=== PATIENT | male | born 1975 | race Caucasian/White ===

== ENCOUNTER 2023-11-17 00:48 | Day surgery (SDC) | payer OTHER, SELFPAY ==
[2023-09-25 09:41] VITALS: BMI 32.5
--- NOTE | 2023-10-20 13:15 | SUR.PREOP ---
Spoke with patient and confirmed date and time of procedure that had been rescheduled. Per patient there is no new medications or updates to medical history that needed to be added to chart.
--- NOTE | 2023-11-15 09:31 | SUR.PREOP ---
Patient called regarding upcoming procedure. Voicemail message regarding appointment times.
--- NOTE | 2023-11-16 18:12 | PM.HPGS ---
History of Present Illness History of Present Illness Consent: Risks, benefits, and alternatives have been discussed and questions answered. Patient agrees to proceed with procedure. Chief complaint: neoplasm screening Narrative: Heladio Raymond is a 48 year old male Referred for colon cancer screening. 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 Father No problems noted. Social History Social History Smoking packs per day: 1 Smoking cigarettes per day: 20.0 Years smoked: 3 Smoking pack-years: 3.00 Smoking status: Former smoker Smokeless tobacco user: chewing tobacco Alcohol intake: current Drinks per week: 3 Substance use: never Substance use type: does not use Lack of Transportation: No Lack of Food: Never True Current Housing: I Have Housing Concerned About Future Housing: No Difficulty Paying Gas/Electric Bills: No Difficulty Paying for Meds: No Currently Unemployed: No Education: Bachelor's Degree Difficulty w/ Childcare or Family Care: No Living arrangements: other Additional living arrangements comments: with sp Occupation/Education: occupation Gender identity (if verbalized by the patient): Male Meds Home Medications and Allergies Home Medications Medication Instructions Recorded Confirmed Type Toprol XL 25 mg tablet,extended 25 mg PO DAILY #90 tabs 09/18/23 11/17/23 Rx release (metoprolol succinate) sildenafil 50 mg tablet (Viagra) 50 mg PO DAILY PRN sexual activity 09/18/23 11/17/23 Rx #20 tabs venlafaxine 25 mg tablet 25 mg PO DAILY #90 tabs 09/18/23 11/17/23 Rx ezetimibe 10 mg tablet 10 mg PO DAILY 11/17/23 11/17/23 History Allergies Allergy/AdvReac Type Severity Reaction Status Date / Time betamethasone AdvReac Severe Other Verified 09/25/23 09:40 [From Celestone] pravastatin AdvReac Unknown Fatigued Verified 09/25/23 09:40 rosuvastatin [From Crestor] AdvReac Unknown Fatigued Verified 09/25/23 09:40 generic TOPROL AdvReac dizzy and Uncoded 09/25/23 09:40 fatigue Exam Resp: Auscultation: clear to auscultation bilaterally Cardio: Rate: regular rate Rhythm: regular rhythm GI: GI Palp: Yes Soft to palpation and No Tenderness to palpation present (GI) Assessment and Plan Assessment and plan (1) Colon cancer screening: Code(s): Z12.11 - Encounter for screening for malignant neoplasm of colon Status: Acute Assessment and Plan: Colonoscopy with possible biopsy or polypectomy or cautery or injection of substances.
[2023-11-17 06:59] VITALS: BP 130/85; PULSE 79; RESP 20; TEMP 36.3; O2SAT 98
[2023-11-17] MEDS: LACTATED RINGERS 1,000 ML 150 ML IV CONT (07:01)
--- NOTE | 2023-11-17 08:06 | WPDANESEPPF ---
Anes - Initial Pre Proc Eval Procedure: Operation Date: 11/17/23 08:30 Proposed Procedures p Screening Colonoscopy - Claudio Friend MD Date/Time: 11/17/23 08:06 Surgeon: Claudio Friend MD Pre Op Diagnosis: neoplasm screening Patient Data Age: 48 Gender: M Height: 1.78 m Weight: 104.2 kg Last Vital Signs Temp 97.3 F L 11/17/23 06:59 Pulse 79 11/17/23 06:59 Resp 20 11/17/23 06:59 BP 130/85 11/17/23 06:59 Pulse Ox 98 11/17/23 06:59 O2 Del Method Room Air 11/17/23 06:59 Allergies Allergy/AdvReac Type Severity Reaction Status Date / Time betamethasone AdvReac Severe Other Verified 09/25/23 09:40 [From Celestone] pravastatin AdvReac Unknown Fatigued Verified 09/25/23 09:40 rosuvastatin [From Crestor] AdvReac Unknown Fatigued Verified 09/25/23 09:40 generic TOPROL AdvReac dizzy and Uncoded 09/25/23 09:40 fatigue Home Medications Medication Instructions Recorded Confirmed Type Toprol XL 25 mg tablet,extended 25 mg PO DAILY #90 tabs 09/18/23 11/17/23 Rx release (metoprolol succinate) sildenafil 50 mg tablet (Viagra) 50 mg PO DAILY PRN sexual activity 09/18/23 11/17/23 Rx #20 tabs venlafaxine 25 mg tablet 25 mg PO DAILY #90 tabs 09/18/23 11/17/23 Rx ezetimibe 10 mg tablet 10 mg PO DAILY 11/17/23 11/17/23 History Patient hx anesthesia problems: none Family hx anesthesia problems: none Results Review: All pre-operative results and documents have been reviewed as part of the pre-operative evaluation. 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 Father No problems noted. Social History Social History (Updated 09/19/23 @ 07:49 by Edie Ya MA) Smoking packs per day: 1 Smoking cigarettes per day: 20.0 Years smoked: 3 Smoking pack-years: 3.00 Smoking status: Former smoker Smokeless tobacco user: chewing tobacco Alcohol intake: current Drinks per week: 3 Substance use: never Substance use type: does not use Lack of Transportation: No Lack of Food: Never True Current Housing: I Have Housing Concerned About Future Housing: No Difficulty Paying Gas/Electric Bills: No Difficulty Paying for Meds: No Currently Unemployed: No Education: Bachelor's Degree Difficulty w/ Childcare or Family Care: No Living arrangements: other Additional living arrangements comments: with sp Occupation/Education: occupation Gender identity (if verbalized by the patient): Male Pito - Joey Final PreProcedure Day of Procedure 11/17/23 08:06 Patient weight: obese Heart: regular rate and rhythm Lungs: clear to auscultation Airway: Mallampati scale class II Neurological: alert and oriented Last oral intake: >/= 8 hours ASA classification: III Emergent: no Anesthetic plan: proceed Anesthesia type and monitoring: general GIVS and standard monitoring Results Review: All pre-operative results and documents have been reviewed as part of the pre-operative evaluation. Informed Consent: The patient's anesthetic plan and its attendant risks and benefits were discussed with the patient/family/POA. Questions were solicited and answers provided to the satisfaction of the patient/family/POA.
[2023-11-17] MEDS: SIMETHICONE ORAL SUSPENSION 20 MG/0.3 ML 30 ML BOTTLE 0.6 ML IRRIGATION (08:30)
[2023-11-17 08:42] VITALS: BP 121/64; PULSE 84; RESP 17; O2SAT 95
[2023-11-17 08:52] VITALS: BP 116/71; PULSE 72; RESP 18; O2SAT 97
[2023-11-17 09:02] VITALS: BP 122/68; PULSE 73; RESP 21; O2SAT 97
== END 2023-11-17 09:12 | disposition home or self-care (01) ==
PROVIDERS: PCP Physician Assistant Medical; Visit Provider Internal Medicine Gastroenterology
PROC: 0DJD8ZZ Inspection of Lower Intestinal Tract, Via Natural or Artificial Opening Endoscopic (ICD-10-PCS; CPT 45378; principal; 2023-11-17 08:30)
DX: Z12.11 Encounter for screening for malignant neoplasm of colon (principal); K57.30 Diverticulosis of large intestine without perforation or abscess without bleeding; I10 Essential (primary) hypertension; G47.30 Sleep apnea, unspecified; Z87.891 Personal history of nicotine dependence
CPT/HCPCS: 45378; J2001; J2704; J7120